=== PATIENT | female | born 1990 | race Caucasian/White ===

== ENCOUNTER 2016-11-26 18:30 | Emergency (ER) | payer OTHER | END 2016-11-26 19:46 | disposition home or self-care (01) | LOC: ER 18:30 | DX: J02.9 Acute pharyngitis, unspecified (principal); Z88.1 Allergy status to other antibiotic agents; Z88.0 Allergy status to penicillin; Z79.899 Other long term (current) drug therapy | CPT/HCPCS: 87502; 87651 ==